=== PATIENT | male | born 1950 | race Caucasian/White ===

== ENCOUNTER 2016-12-22 19:14 | Emergency (ER) | payer OTHER ==
[2016-12-22] MEDS ORDERED: ACETAMINOPHEN 325 MG TABLET (FP) PO ONE (19:21)
[2016-12-22 19:23] VITALS: BMI 36.6
[2016-12-22 19:36] LABS: URINE APPEARANCE SLCLOUDY; URINE BILIRUBIN NEGATIVE (NEGATIVE); URINE COLOR LTYELLOW; URINE GLUCOSE (UA) 3+ (NEGATIVE); URINE KETONE NEGATIVE (NEGATIVE); URINE NITRITE NEGATIVE (NEGATIVE); URINE PROTEIN NEGATIVE (NEGATIVE); URINE UROBILINOGEN NEGATIVE E.U./dl (0.2-1.0)
[2016-12-22 19:43] LABS: URINE BLOOD 3+ (NEGATIVE); URINE LEUK ESTERASE 3+ (NEGATIVE)
[2016-12-22] MEDS ORDERED: LEVOFLOXACIN 500 MG IVPB 100 ML IVPB ONE ×2 (21:03→21:24)
--- NOTE | 2016-12-22 21:07 | PDOC ---
History of Present Illness - General History Source: Patient Exam Limitations: No Limitations - History of Present Illness Initial Comments: 12/22/16 21:08 The patient is a 66 year old male with a significant past medical history of IDDM, hypertension, and asthma, who presents to the ER with lower back pain, burning on urination, and bloody urine for one day. Patient reports he was in his usual state of health yesterday. He says he noticed blood in the urine this morning, with associated back pain and burning on urination. Patient also reports subjective fever. Patient says he has not checked his prostate in over four years. Denies abdominal pain Denies frequency Denies cough, shortness of breath, chest pain Denies headache Denies lightheadedness PCP: Dr. Rayo Faria <Sri Gamble - Last Filed: 12/22/16 21:08> - General History Source: Patient Exam Limitations: No Limitations <Markel Cervantes - Last Filed: 12/22/16 23:09> - General Chief Complaint: SIRS, Suspected/Possible Stated Complaint: URINARY PROBLEM Time Seen by Provider: 12/22/16 19:21 Past History <Sri Gamble - Last Filed: 12/22/16 21:08> - Past Medical History Diabetes: Yes - Psycho/Social/Smoking Cessation Hx Suicidal Ideation: No Smoking History: Former smoker Have you smoked in the past 12 months: No Information on smoking cessation initiated: No <Markel Cervantes - Last Filed: 12/22/16 23:09> - Past Medical History Allergies/Adverse Reactions: Allergies Allergy/AdvReac Type Severity Reaction Status Date / Time No Known Allergies Allergy Verified 12/22/16 19:20 Home Medications: Ambulatory Orders Aspirin [ASA -] 81 mg PO DAILY 12/22/16 Ciprofloxacin [Cipro -] 500 mg PO Q12H #20 tablet 12/22/16 Liraglutide [Victoza -] 20 mg SQ DAILY 12/22/16 Losartan Potassium 25 mg PO DAILY 12/22/16 Metformin HCl 500 mg PO BID 12/22/16 Simvastatin 20 mg PO DAILY 12/22/16 Review of Systems - Review of Systems Able to Perform ROS?: Yes Comments:: 12/22/16 21:08 GENERAL/CONSTITUTIONAL: (+) subjective fever. No chills. No weakness. HEAD, EYES, EARS, NOSE AND THROAT: No change in vision. No ear pain or discharge. No sore throat. CARDIOVASCULAR: No chest pain or shortness of breath. RESPIRATORY: No cough, wheezing, or hemoptysis. GASTROINTESTINAL: No nausea, vomiting, diarrhea or constipation. GENITOURINARY: (+) dysuria (+) hematuria. No frequency. MUSCULOSKELETAL: No joint or muscle swelling or pain. No neck or back pain. SKIN: No rash NEUROLOGIC: No headache, vertigo, loss of consciousness, or change in strength/ sensation. ENDOCRINE: No increased thirst. No abnormal weight change. HEMATOLOGIC/LYMPHATIC: No anemia, easy bleeding, or history of blood clots. ALLERGIC/IMMUNOLOGIC: No hives or skin allergy. <Mas,Sri - Last Filed: 12/22/16 21:08> *Physical Exam - Vital Signs Last Vital Signs Temp Pulse Resp BP Pulse Ox 101.6 F H 103 H 18 166/78 96 12/22/16 19:21 12/22/16 19:21 12/22/16 19:21 12/22/16 19:21 12/22/16 19:21 - Physical Exam Comments: 12/22/16 21:10 GENERAL: Awake, alert, and fully oriented, in no acute distress HEAD: No signs of trauma EYES: PERRLA, EOMI, sclera anicteric, conjunctiva clear ENT: Auricles normal inspection, hearing grossly normal, nares patent, oropharynx clear without exudates. Moist mucosa NECK: Normal ROM, supple, no lymphadenopathy, JVD, or masses LUNGS: Breath sounds equal, clear to auscultation bilaterally. No wheezes, and no crackles HEART: Regular rate and rhythm, normal S1 and S2, no murmurs, rubs or gallops ABDOMEN: Soft, nontender, normoactive bowel sounds. No guarding, no rebound. No masses EXTREMITIES: Normal range of motion, no edema. No clubbing or cyanosis. No cords, erythema, or tenderness NEUROLOGICAL: Cranial nerves II through XII grossly intact. Normal speech, normal gait SKIN: Warm, Dry, normal turgor, no rashes or lesions noted. <Mas,Sri - Last Filed: 12/22/16 21:08> - Vital Signs Last Vital Signs Temp Pulse Resp BP Pulse Ox 101.6 F H 103 H 18 166/78 96 12/22/16 19:21 12/22/16 19:21 12/22/16 19:21 12/22/16 19:21 12/22/16 19:21 <Markel Cervantes - Last Filed: 12/22/16 23:09> Heart Score/ECG Review #1 ECG reviewed & interpreted by me at: 21:35 12/22/16 22:05 NSR 86, no std/kitty, normal axis, normal intervals, QTC 399 msec <Markel Cervantes - Last Filed: 12/22/16 23:09> ED Treatment Course - ADDITIONAL ORDERS Additional order review: Laboratory Results 12/22/16 19:30 Urine Color Ltyellow Urine Appearance Slcloudy Urine pH 5.0 Urine Protein Negative Urine Glucose (UA) 3+ H Urine Ketones Negative Urine Blood 3+ H Urine Nitrite Negative Urine Bilirubin Negative Urine Urobilinogen Negative Ur Leukocyte Esterase 3+ H - Medications Given in the ED: ED Medications Discontinued Medications Generic Name Dose Route Start Last Admin Trade Name Freq PRN Reason Stop Dose Admin Acetaminophen 650 mg 12/22/16 19:21 12/22/16 19:28 Tylenol - PO 12/22/16 19:22 650 mg ONCE ONE Administration <Uts,Sri - Last Filed: 12/22/16 21:08> - LABORATORY CBC & Chemistry Diagram: 12/22/16 21:13 12/22/16 21:13 - ADDITIONAL ORDERS Additional order review: Laboratory Results 12/22/16 19:30 Urine Color Ltyellow Urine Appearance Slcloudy Urine pH 5.0 Urine Protein Negative Urine Glucose (UA) 3+ H Urine Ketones Negative Urine Blood 3+ H Urine Nitrite Negative Urine Bilirubin Negative Urine Urobilinogen Negative Ur Leukocyte Esterase 3+ H - Medications Given in the ED: ED Medications Discontinued Medications Generic Name Dose Route Start Last Admin Trade Name Freq PRN Reason Stop Dose Admin Acetaminophen 650 mg 12/22/16 19:21 12/22/16 19:28 Tylenol - PO 12/22/16 19:22 650 mg ONCE ONE Administration <Markel Cervantes - Last Filed: 12/22/16 23:09> Medical Decision Making - Medical Decision Making 12/22/16 21:04 A portion of this note was documented by scribe services under my direction. I have reviewed the details of the note, within reason, and agree with the documentation with the following case summary and management plan written by me. Patient treated in the ED. Nursing notes are reviewed and incorporated into the medical decision-making. Vital signs reviewed. Peripheral IV access obtained by the nurse, laboratory studies are drawn and sent, reviewed and interpreted by myself. Vital Signs Temp Pulse Resp BP Pulse Ox 101.6 F H 103 H 18 166/78 96 12/22/16 19:21 12/22/16 19:21 12/22/16 19:21 12/22/16 19:21 12/22/16 19:21 66-year-old male with history of hypertension, diabetes presents with dysuria and fever for one day. Patient reports that he was well yesterday. Woke up with dysuria and tactile fevers. Denies abdominal pain or flank pain. Does report some lower back discomfort. Urinalysis demonstrates urine tract infection. We'll obtain blood work to rule out sepsis. We'll give Levaquin and reassess. 12/22/16 23:05 CBC, BMP 12/22/16 21:13 12/22/16 21:13 CMP Sodium 136 mmol/L (136-145) 12/22/16 21:13 Potassium 4.4 mmol/L (3.5-5.1) 12/22/16 21:13 Chloride 98 mmol/L (98-107) 12/22/16 21:13 Carbon Dioxide 28 mmol/L (21-32) 12/22/16 21:13 Anion Gap 10 (8-16) 12/22/16 21:13 BUN 13 mg/dL (7-18) 12/22/16 21:13 Creatinine 0.9 mg/dL (0.7-1.3) 12/22/16 21:13 Creat Clearance w eGFR > 60 (>60) 12/22/16 21:13 Random Glucose 248 mg/dL (74-106) H 12/22/16 21:13 Lactic Acid 1.8 mmol/L (0.4-2.0) 12/22/16 21:13 Calcium 8.2 mg/dL (8.5-10.1) L 12/22/16 21:13 Total Bilirubin 0.7 mg/dL (0.2-1.0) 12/22/16 21:13 AST 41 U/L (15-37) H 12/22/16 21:13 ALT 94 U/L (12-78) H 12/22/16 21:13 Alkaline Phosphatase 104 U/L (45-117) 12/22/16 21:13 Creatine Kinase 199 IU/L (39-308) 12/22/16 21:13 Creatine Kinase Index % (0.0-5.0) 12/22/16 21:13 CK-MB (CK-2) < 1.000 ng/ml (0.5-3.6) 12/22/16 21:13 CK-MB (CK-2) Rel Index Cancelled 12/22/16 21:13 Troponin I < 0.02 ng/ml (0.00-0.05) 12/22/16 21:13 Total Protein 7.2 g/dl (6.4-8.2) 12/22/16 21: Albumin 3.5 g/dl (3.4-5.0) 12/22/16 21:13 Urine Test Results Urine Color Ltyellow 12/22/16 19:30 Urine Appearance Slcloudy 12/22/16 19:30 Urine pH 5.0 (5.0-8.0) 12/22/16 19:30 Urine Protein Negative (NEGATIVE) 12/22/16 19:30 Urine Glucose (UA) 3+ (NEGATIVE) H 12/22/16 19:30 Urine Ketones Negative (NEGATIVE) 12/22/16 19:30 Urine Blood 3+ (NEGATIVE) H 12/22/16 19:30 Urine Nitrite Negative (NEGATIVE) 12/22/16 19:30 Urine Bilirubin Negative (NEGATIVE) 12/22/16 19:30 Ur Leukocyte Esterase 3+ (NEGATIVE) H 12/22/16 19:30 Urine RBC 279 /hpf (0-3) 12/22/16 19:30 Urine WBC 227 /hpf (3-5) 12/22/16 19:30 Urine Mucus Rare 12/22/16 19:30 Patient's blood work demonstrates a mildly elevated white count 13 and a positive UA. Lactic acid is negative. Patient appears remarkably well and nontoxic appearing. We'll give a prescription of ciprofloxacin outpatient follow -up with his primary care physician. Return precautions given. Patient is with his also agrees with plan. I discussed the physical exam findings, ancillary test results and final diagnoses with the patient. I answered all of the patient's questions. The patient was satisfied with the care received and felt comfortable with the discharge plan and treatment plan. The patient will call their primary care physician within 24 hours to arrange follow-up and will return to the Emergency Department with any new, persistant or worsening symptoms. <Markel Cervantes - Last Filed: 12/22/16 23:09> *DC/Admit/Observation/Transfer - Attestations Scribe Attestion: 12/22/16 21:11 Documentation prepared by Sri Gamble, acting as medical office coordinator for Markel Cervantes MD. <Sri Gamble - Last Filed: 12/22/16 21:08> - Discharge Dispostion Admit: No <Markel Cervantes - Last Filed: 12/22/16 23:09> Diagnosis at time of Disposition: UTI (urinary tract infection) Qualifiers: Urinary tract infection type: acute cystitis Hematuria presence: without hematuria Qualified Code(s): N30.00 - Acute cystitis without hematuria - Discharge Dispostion Disposition: HOME Condition at time of disposition: Improved - Prescriptions Prescriptions: Ciprofloxacin [Cipro -] 500 mg PO Q12H #20 tablet - Referrals Referrals: Alexnader Canales [Primary Care Provider] - - Patient Instructions Printed Discharge Instructions: DI for Urinary Tract Infection (UTI)
[2016-12-22 21:32] LABS: URINE MUCUS RARE; URINE RBC 279 /hpf (0-3); URINE WBC 227 /hpf (3-5)
[2016-12-22 21:50] LABS: BASOPHIL 0.3 % (0-2.0); EOSINOPHIL 4.2 % (0-4.5); MCH 33.5 pg (25.7-33.7); MCHC 33.4 g/dl (32.0-35.9); MEAN CELL VOLUME 100.3 fl (80-96); MEAN PLT VOLUME 8.5 fl (7.5-11.1); NEUTROPHILS 77.2 % (42.8-82.8); PLATELET COUNT 205 K/MM3 (134-434); RDW 12.7 % (11.9-15.9); WHITE BLOOD COUNT 13.6 K/mm3 (4.0-10.0)
[2016-12-22 22:15] LABS: ALBUMIN 3.5 g/dl (3.4-5.0); ANION GAP 10 (8-16); BILIRUBIN,TOTAL 0.7 mg/dL (0.2-1.0); CALCIUM 8.2 mg/dL (8.5-10.1); CO2 28 mmol/L (21-32); COCKROFT - GAULT 112.4; CREATININE 0.9 mg/dL (0.7-1.3); GLUCOSE,RANDOM 248 mg/dL (74-106); SGOT/AST 41 U/L (15-37); SGPT/ALT 94 U/L (12-78); TOT PROT 7.2 g/dl (6.4-8.2)
[2016-12-22 22:17] LABS: ALK PHOS 104 U/L (45-117); TROPONIN I < 0.02 ng/ml (0.00-0.05)
[2016-12-22 23:24] LABS: INR 1.15 (0.82-1.09); PROTHROMBIN TIME (PATIENT) 12.7 SEC (9.98-11.88)
[2016-12-22 23:25] LABS: PLATELET ESTIMATE ADEQUATE (NORMAL); POLYCHROMASIA OCC
[2016-12-22 23:27] VITALS: BP 142/67; PULSE 87; TEMP 100.1
[2016-12-22 23:27] LABS: ACTIVATED PTT 29.5 SECONDS (26.9-34.4)
--- NOTE | 2016-12-23 11:03 | EKG ---
Test Reason : Blood Pressure : / mmHG Vent. Rate : 086 BPM Atrial Rate : 086 BPM P-R Int : 182 ms QRS Dur : 080 ms QT Int : 334 ms P-R-T Axes : 054 029 039 degrees QTc Int : 399 ms NORMAL SINUS RHYTHM NORMAL ECG NO PREVIOUS ECGS AVAILABLE Confirmed by MANN PRAKASH, PIYUSH ([id number]) on 12/23/2016 11:03:30 AM Referred By: Confirmed By:PIYUSH DARNELL MD
== END 2016-12-22 23:29 | disposition home or self-care (01) ==
LOC: JER 19:14
DX: N30.01 Acute cystitis with hematuria (principal); I11.0 Hypertensive heart disease with heart failure; E11.9 Type 2 diabetes mellitus without complications; Z79.84 Long term (current) use of oral hypoglycemic drugs; J45.909 Unspecified asthma, uncomplicated
CPT/HCPCS: 36415; 71010-TC; 80053; 81003; 81015; 82550; 82553; 83605; 84484; 85025; 85610; 85730; 86850; 86900; 86901; 87040; 87086; 87186; 93005; 93010; 99282-25

== ENCOUNTER 2017-09-07 11:45 | Emergency (ER) | payer OTHER ==
[2017-09-07 12:05] VITALS: BP 167/83; PULSE 58; TEMP 98.2; BMI 36.2
--- NOTE | 2017-09-07 13:56 | PDOC ---
History of Present Illness - General Chief Complaint: Ear Problem Stated Complaint: EAR PAIN Time Seen by Provider: 09/07/17 13:32 History Source: Patient Exam Limitations: No Limitations - History of Present Illness Initial Comments: CHIEF COMPLAINT: 67 y/o afebrile male with IDDM c/o left ear pain and hearing loss x 2 weeks. HISTORY OF PRESENT ILLNESS: The patient states he has had clear drainage from his left ear and cannot hear in that ear. He states this happened in his other ear a few months ago and was given drops, which he has been using in his left ear and isn't helping (ciprodex). He denies fever, pain with movement of his head, pain behind his left ear and all other symptoms. PCP is Dr. Ribeiro Past History - Past Medical History Allergies/Adverse Reactions: Allergies Allergy/AdvReac Type Severity Reaction Status Date / Time No Known Allergies Allergy Verified 12/22/16 19:20 Home Medications: Ambulatory Orders Aspirin [ASA -] 81 mg PO DAILY 12/22/16 Ciprofloxacin [Cipro -] 500 mg PO Q12H #20 tablet 12/22/16 Liraglutide [Victoza -] 20 mg SQ DAILY 12/22/16 Losartan Potassium 25 mg PO DAILY 12/22/16 Metformin HCl 500 mg PO BID 12/22/16 Simvastatin 20 mg PO DAILY 12/22/16 Ciprofloxacin [Cipro -] 750 mg PO BID #42 tablet 09/07/17 Neomycin/Polymyxn/Hc [Cortisporin Otic Solution -] 4 drop QID #160 drops Diabetes: Yes - Suicide/Smoking/Psychosocial Hx Smoking History: Former smoker Have you smoked in the past 12 months: No Information on smoking cessation initiated: No Hx Alcohol Use: No Drug/Substance Use Hx: No Review of Systems - Review of Systems Able to Perform ROS?: Yes Constitutional: No: Symptoms Reported HEENTM: Yes: Ear Pain (left ear), Ear Discharge, Hearing Loss. No: Blurred Vision, Recent change in vision, Nose Pain, Nose Congestion, Throat Pain, Difficulty Swallowing Respiratory: No: Symptoms reported Cardiac (ROS): No: Symptoms Reported ABD/GI: No: Symptoms Reported Neurological: No: Symptoms reported *Physical Exam - Vital Signs Last Vital Signs Temp Pulse Resp BP Pulse Ox 98.2 F 58 L 20 167/83 100 09/07/17 12:02 09/07/17 12:02 09/07/17 12:02 09/07/17 12:02 09/07/17 12:02 - Physical Exam Comments: well appearing ambulatory male in NAD or obvious discomfort. General Appearance: Yes: Nourished, Appropriately Dressed HEENT: positive: EOMI, MART, Pharynx Normal, Other (Left ear canal erythematous and edematous without enough of an opening to visualize the TM). negative: Muffled/Hoarse voice, Nasal Congestion, Rhinorrhea Neck: positive: Lymphadenopathy (L) (Inflammed and tender left supervical cervical and preauricular nodes. ), Other (No mastoid TTP ) Neurologic: positive: notereader II-XII NML intact, Fully Oriented, Alert, Normal Mood/ Affect, Normal Response, Motor Strength 5/5 Medical Decision Making - Medical Decision Making A/P: 67 y/o IDDM male with left otitis externa. Possibly malignant? Spoke with Dr. De La Cruz who also examined the patient and will discharge to home with rx for PO cipro, corticosporin drops and will suggest he put vinegar in his ear as well. Instructed him to f/u with Dr. Waters this week and return to the ER immediately with any worsening or concerning symptoms. The patient verbalizes understanding of all instructions, has no further questions and is awaiting discharge. *DC/Admit/Observation/Transfer Diagnosis at time of Disposition: Otitis externa Qualifiers: Otitis externa type: malignant Chronicity: acute Laterality: left Qualified Code(s): H60.22 - Malignant otitis externa, left ear - Discharge Dispostion Disposition: HOME Condition at time of disposition: Good - Referrals Referrals: Alexander Canales [Primary Care Provider] - Mata Waters MD [Staff Physician] - (Call today) - Patient Instructions Printed Discharge Instructions: DI for Otitis Externa Additional Instructions: Discharge Instructions: -2 prescriptions have been sent to your pharmacy -Please put vinegar drops in your affected ear twice a day as well -Please call Dr. Waters today and try to schedule an appointment for this week to follow up -Return to the ER immediately with any worsening or concerning symptoms. Instrucciones de descarga: -2 recetas herbert sido enviadas a rosario farmacia -Por favor, ponga gotas de vinagre en rosario oreja afectada dos veces al da ritesh Sánchez al Dr. Saadia kilpatrick e intente programar anabel blake para esta semana para hacer un seguimiento -Vuelva a la haley de urgencias de inmediato con cualquier empeoramiento o en relacin con los sntomas. Print Language: SAO TOMEAN - Post Discharge Activity
== END 2017-09-07 14:14 | disposition home or self-care (01) ==
LOC: JERFT 11:45
DX: H60.22 Malignant otitis externa, left ear (principal); E11.9 Type 2 diabetes mellitus without complications; Z79.4 Long term (current) use of insulin
CPT/HCPCS: 99281-25

== ENCOUNTER 2017-12-22 17:34 | Emergency (ER) | payer OTHER ==
[2017-12-22 17:54] VITALS: BP 151/82; PULSE 66; TEMP 98.6; BMI 36.2
[2017-12-22] MEDS ORDERED: DEXAMETHASONE LIQUID 0.5 MG/5 ML 240 ML BULK BOTTLE PO ONE (18:36)
[2017-12-22] MEDS ORDERED: ALBUTEROL SO4 2.5/IPRATROPIUM 0.5 INH SOL 3 ML VIAL.NEB. NEB ONE (18:38)
[2017-12-22] MEDS ORDERED: DEXAMETHASONE SOD PHOSPHATE 10 MG/1 ML VIAL ONE (18:38)
--- NOTE | 2017-12-22 18:38 | PDOC ---
History of Present Illness - General Chief Complaint: Respiratory Stated Complaint: COUGHING Time Seen by Provider: 12/22/17 17:59 - History of Present Illness Initial Comments: 67-year-old male with a past medical history significant for hypertension and diabetes presents with two-week exacerbation of cough unrelieved by his home nebulizer treatment. Of note he does have a past medical history of asthma. He has no other associated symptoms no fever, chills, night sweats, nausea, vomiting, headache. 12/22/17 18:36 Past History - Past Medical History Allergies/Adverse Reactions: Allergies Allergy/AdvReac Type Severity Reaction Status Date / Time No Known Allergies Allergy Verified 12/22/17 17:50 Home Medications: Ambulatory Orders Losartan Potassium 25 mg PO DAILY 12/22/16 Simvastatin 20 mg PO DAILY 12/22/16 metFORMIN HCL [Metformin HCl] 500 mg PO BID 12/22/16 Albuterol Sulfate [Proair Respiclick] 90 mcg IH ASDIR 12/22/17 Insulin Degludec [Tresiba Flextouch U-100] 100 unit SQ ASDIR 12/22/17 Diabetes: Yes - Suicide/Smoking/Psychosocial Hx Smoking History: Never smoked Have you smoked in the past 12 months: No Hx Alcohol Use: No Drug/Substance Use Hx: No Review of Systems - Review of Systems Respiratory: Yes: Cough, Wheezing All Other Systems: Reviewed and Negative *Physical Exam - Vital Signs Last Vital Signs Temp Pulse Resp BP Pulse Ox 98.6 F 66 18 151/82 97 12/22/17 17:50 12/22/17 17:50 12/22/17 17:50 12/22/17 17:50 12/22/17 17:50 - Physical Exam Comments: GENERAL: The patient is awake, alert, and fully oriented, in no acute distress. HEAD: Normal with no signs of trauma. EYES: Pupils equal, round and reactive to light, extraocular movements intact, sclera anicteric, conjunctiva clear. ENT: Ears normal, nares patent, oropharynx clear without exudates. Moist mucous membranes. NECK: Normal range of motion, supple without lymphadenopathy, JVD, or masses. LUNGS: Breath sounds equal, diffuse bilateral wheezing no rhonchi HEART: Regular rate and rhythm, normal S1 and S2 without murmur, rub or gallop. ABDOMEN: Soft, nontender, normoactive bowel sounds. No guarding, no rebound. No masses. EXTREMITIES: Normal range of motion, no edema. No clubbing or cyanosis. No cords, erythema, or tenderness. NEUROLOGICAL: Cranial nerves II through XII grossly intact. Normal speech, normal gait. PSYCH: Normal mood, normal affect. SKIN: Warm, Dry, normal turgor, no rashes or lesions noted. 12/22/17 18:37 Medical Decision Making - Medical Decision Making I'll give him DuoNeb treatments and steroids and reevaluate him. 12/22/17 18:38 12/22/17 20:54 Patient received for DuoNeb treatments he has a negative chest x-ray. He also received steroids. It and his wheezing has stopped. He will follow-up with his primary care physician. *DC/Admit/Observation/Transfer Diagnosis at time of Disposition: Asthma - Discharge Dispostion Disposition: HOME Condition at time of disposition: Improved Decision to Admit order: No - Referrals Referrals: Alexander Canales [Primary Care Provider] - - Patient Instructions Printed Discharge Instructions: DI for Asthma -- Adult Additional Instructions: Return to the emergency room if your symptoms return. Otherwise you can follow- up with your primary care physician next 1-2 days. Continue home nebulizer treatments as you have been in the past. He was given a dose of oral steroids which should help her breathing.Chest x-ray was clear today - Post Discharge Activity
[2017-12-22] MEDS: ALBUTEROL SO4 2.5/IPRATROPIUM 0.5 INH SOL 3 ML VIAL.NEB. NEB SCH ×3 (18:42→19:36)
== END 2017-12-22 21:25 | disposition home or self-care (01) ==
LOC: JERFT 17:34
PROC: 3E0F7GC Introduction of Other Therapeutic Substance into Respiratory Tract, Via Natural or Artificial Opening (ICD-10-PCS; principal; 2017-12-22)
DX: J45.909 Unspecified asthma, uncomplicated (principal); I10 Essential (primary) hypertension; E11.9 Type 2 diabetes mellitus without complications; Z79.4 Long term (current) use of insulin; Z79.84 Long term (current) use of oral hypoglycemic drugs
CPT/HCPCS: 71045-TC-FY; 99281-25; J7620

== ENCOUNTER 2022-07-24 18:40 | Emergency (ER) | payer OTHER ==
[2022-07-24 20:13] VITALS: BP 152/82; PULSE 77; RESP 18; TEMP 99.8; BMI 32.9
[2022-07-24] MEDS ORDERED: IBUPROFEN 600 MG TABLET (FP) PO ONE (20:14)
[2022-07-24] MEDS ORDERED: DEXAMETHASONE SOD PHOSPHATE 10 MG/1 ML VIAL IM ONE (20:19)
[2022-07-24] MEDS ORDERED: ALBUTEROL SO4 2.5/IPRATROPIUM 0.5 INH SOL 3 ML VIAL.NEB. NEB ONE (20:19)
== END 2022-07-24 22:34 | disposition home or self-care (01) ==
LOC: JER 18:40
PROC: 3E023GC Introduction of Other Therapeutic Substance into Muscle, Percutaneous Approach (ICD-10-PCS; principal; 2022-07-24)
PROC: 3E0F7GC Introduction of Other Therapeutic Substance into Respiratory Tract, Via Natural or Artificial Opening (ICD-10-PCS; 2022-07-24)
DX: U07.1 COVID-19 (principal)
CPT/HCPCS: 71046-TC-FY; 94640; 96372; 99284-25; J1100